=== PATIENT | male | born 1950 | race Caucasian/White ===

== ENCOUNTER 2021-05-06 06:12 | Inpatient (IN) ==
--- NOTE | 2021-04-23 11:11 | PAT Medication Instructions ---
Medication Instructions Date of Service April 23, 2021 Home Medications aspirin 81 mg tablet,delayed release 81 mg PO HS caffeine 200 mg tablet 400 mg PO QAM empagliflozin 25 mg-linagliptin 5 mg tablet (Glyxambi) 1 tab PO QAM ibuprofen 800 mg tablet 800 mg PO HS insulin glargine 100 unit/mL subcutaneous cartridge 30 unit SUBCUT HS lamotrigine 50 mg tablet,extended release 24 hr 50 mg PO QAM multivitamin 1 tab PO QAM pantoprazole 40 mg tablet,delayed release 40 mg PO QAM prazosin 1 mg capsule 3 mg PO HS quetiapine 100 mg tablet (Seroquel) 100 mg PO HS tamsulosin 0.4 mg capsule 0.4 mg PO QAM venlafaxine 150 mg capsule,extended release 24 hr (Effexor XR) 150 mg PO QAM venlafaxine 75 mg capsule,extended release 24 hr (Effexor XR) 75 mg PO QAM ASK your surgeon for instructions ibuprofen 800 mg tablet 800 mg PO HS ASK your prescriber and surgeon aspirin 81 mg tablet,delayed release 81 mg PO HS DO NOT take the morning of surgery caffeine 200 mg tablet 400 mg PO QAM empagliflozin 25 mg-linagliptin 5 mg tablet (Glyxambi) 1 tab PO QAM multivitamin 1 tab PO QAM Take morning of surgery With a small sip of water, OTHERWISE NOTHING TO EAT OR DRINK AFTER MIDNIGHT: lamotrigine 50 mg tablet,extended release 24 hr 50 mg PO QAM pantoprazole 40 mg tablet,delayed release 40 mg PO QAM tamsulosin 0.4 mg capsule 0.4 mg PO QAM venlafaxine 150 mg capsule,extended release 24 hr (Effexor XR) 150 mg PO QAM venlafaxine 75 mg capsule,extended release 24 hr (Effexor XR) 75 mg PO QAM Take evening before surgery insulin glargine 100 unit/mL subcutaneous cartridge 30 unit SUBCUT HS prazosin 1 mg capsule 3 mg PO HS quetiapine 100 mg tablet (Seroquel) 100 mg PO HS Other Notes If you have any questions please call us at [phone] or [phone] or [phone] or [phone]
--- NOTE | 2021-04-24 13:50 | Anesthesiology Consultation ---
Date of Service April 24, 2021 Assessment & Plan (1) Encounter for pre-operative examination: Chart Review Chart Review: Acceptable Risk for Surgery (pending surgeon ordered PCP clearance (response on EKG and BSG) and preop Covid testing results ) and Patient seen in Pre Admission Testing Awaiting surgeon ordered PCP clearance scheduled 04/26/21 (did write note to PCP regarding bifascicular block on EKG and elevated BSG) - Check BSG AM DOS. 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 Wears mask when required. No known Covid positive exposures or Covid related symptoms. No known Covid infection in the past 90 days. Pt is fully vaccinated for Covid. Preop Covid testing scheduled 05/06/21= will await results. Educated on importance of self quarantining, social distancing and wearing mask in public for the patient one week prior to surgery and after Covid testing done Teaching & Discussion Pre-Anesthesia Teaching/Discussion Notes: Instructed NPO after midnight before surgery,except medications with 15 cc of water. Medication instructions provided according to the PAT guidelines. History Surgery Operation Date: 05/08/21 09:05 Proposed Procedures p L3-S1 Decompression, L2-S1 Fusion, Spinal Cord Monitoring - Michael Zarco, Height/Weight Height: 6 ft 5 in Weight: 109.8 kg Allergies Allergy/AdvReac Type Severity Reaction Status Date / Time chlorpromazine Allergy Unknown Hives Verified 04/18/21 11:21 [From Thorazine] Medications Home Medications Medication Instructions Recorded Confirmed Last Taken aspirin 81 mg tablet,delayed 81 mg PO 04/18/21 04/18/21 Unknown release caffeine 200 mg tablet 400 mg PO [facility] 04/18/21 04/18/21 Unknown empagliflozin 25 mg-linagliptin 5 1 tab PO [facility] 04/18/21 04/18/21 Unknown mg tablet (Glyxambi) ibuprofen 800 mg tablet 800 mg PO 04/18/21 04/18/21 Unknown insulin glargine 100 unit/mL 30 unit SUBCUT 04/18/21 04/18/21 Unknown subcutaneous cartridge lamotrigine 50 mg tablet,extended 50 mg PO [facility] 04/18/21 04/18/21 Unknown release 24 hr multivitamin 1 tab PO QAM 04/18/21 04/18/21 Unknown pantoprazole 40 mg tablet,delayed 40 mg PO QAM 04/18/21 04/18/21 Unknown release prazosin 1 mg capsule 3 mg PO HS 04/18/21 04/18/21 Unknown quetiapine 100 mg tablet (Seroquel) 100 mg PO HS 04/18/21 04/18/21 Unknown tamsulosin 0.4 mg capsule 0.4 mg PO QAM 04/18/21 04/18/21 Unknown venlafaxine 150 mg 150 mg PO QAM 04/18/21 04/18/21 Unknown capsule,extended release 24 hr (Effexor XR) venlafaxine 75 mg capsule,extended 75 mg PO [facility] 04/18/21 04/18/21 Unknown release 24 hr (Effexor XR) Past Medical History Medical History Chronic back pain Depression Diabetes mellitus, type 2 Glucose stable in 150s per patient Wears Issa Freestyle - continuous glucose monitor Enlarged prostate GERD (gastroesophageal reflux disease) Well controlled and stable History of blood transfusion with appendectomy Mood disorder Post traumatic stress disorder Exercise / Class Metabolic Activity II 4-5 Yardwork/Stairs/Walk up hill (one flight of stairs- no chest pain or SOB ) Past Family History Family History Son Family history of diabetes mellitus Family/Other Family history of diabetes mellitus Past Surgical History Surgical History History of appendectomy History of cholecystectomy 02/2021 History of colonoscopy 07/2020 History of esophagogastroduodenoscopy (EGD) History of herniorrhaphy History of total knee replacement BILAT Past Anesthesia History No Hx of Anesthesia Complications and No Family Hx of Anesthesia Complications History of PONV No Hx of PONV and No Hx of Motion Sickness Social History Smoking Status: Former smoker Do You Dip or Chew Tobacco: No Smoking End Date: QUIT 25 YRS AGO Hx Alcohol Use: No Hx Substance Use: Yes substance use type: marijuana Substance Use Type Other:: MEDICAL MARIJUANA CARD-INH TID Review of Systems Hx of snoring - sleep study many years ago- no YOSELIN- snoring improved with elevating bed Patient denies chest pain, shortness of breath, dyspnea on exertion, cough, wheezing, palpitations. No hx of seizures, stroke, [place]. No hx of blood clots. Physical Exam Vital Signs VITALS BP 153/89 P 83 TEMP 98.0 SP02 95% RESP 16 Constitutional no acute distress ENMT Mouth: no TMJ clicking Thyromental Distance: > or= 3.5 Finger Breadths (3.5) Mallampati Class: II Neck neck extension not limited Respiratory normal respiratory effort; no respiratory distress Auscultation: lungs clear to auscultation bilaterally; no wheezes Cardiovascular Rate/Rhythm: regular rate and regular rhythm Heart Sounds: no murmur Vessels: no carotid bruit Occ missed beat Musculoskeletal Spine: no pain with cervical ROM Extremities: extremities normal to inspection Psychiatric Orientation: alert Lab Results Anesthesia Preop Results Results Anesthesia Widget: WBC 9.69 K/uL (4.8-10.8) 04/24/21 Hgb 16.2 g/dL (14.0-18.0) 04/24/21 Hct 48.2 % (42-52) 04/24/21 Plt 197 K/uL (130-400) 04/24/21 Na 139 mmol/L (136-145) 04/24/21 K 3.9 mmol/L (3.5-5.1) 04/24/21 Cl 105 mmol/L (98-107) 04/24/21 CO2 24 mmol/L (21-32) 04/24/21 BUN 26 mg/dl (6-23) H 04/24/21 Creat 0.93 mg/dl (0.6-1.4) 04/24/21 Glucose Level 304 mg/dl (70-99) H* 04/24/21 PT 9.2 Seconds (9.0-12.0) 04/24/21 PTT 27.5 Seconds (21.0-31.0) 04/24/21 INR 0.9 (0.9-1.1) 04/24/21 HA1c 8.3 % (4.5-5.6) H 04/24/21 Urine Color Yellow 04/24/21 Urine Appearance Clear (Clear) 04/24/21 Urine pH 5.0 (4.5-7.5) 04/24/21 Urine Specific [place] 1.030 (1.000-1.030) 04/24/21 Urine Protein Negative (Negative) 04/24/21 Urine Glucose (UA) 3+ (Negative) H 04/24/21 Urine Ketones 1+ (Negative) H 04/24/21 Urine Blood Negative (Negative) 04/24/21 Urine Nitrite Negative (Negative) 04/24/21 Urine Bilirubin Negative (Negative) 04/24/21 Urine Urobilinogen Negative (Negative) 04/24/21 Urine Leukocyte Esterase Negative (Negative) 04/24/21 Blood Type O Positive 04/24/21 Antibody Screen NEGATIVE 04/24/21 Lab Comments: Did inform surgeon's office and PCP of elevated glucose and Hgb A1C results- will leave to surgeon and PCP discretion on how to proceed Testing Electrocardiogram Date: 04/24/21 SR with PACs at 95 bpm. RBBB. LAFB. (Per review of previous EKGs- LAFB is new. Note sent to PCP requesting additional cardiac testing and/or cardio clearance prior to surgery) Chest X-Ray Date: 04/24/21 Findings: + NAD Mild right hemidiaphragmatic elevation.
[~2021-05-06 06:12] MED LIST: ACETAMINOPHEN 500 MG TAB PO SCH; CeleBREX 200 MG CAP PO SCH; GABAPENTIN 300 MG CAP PO SCH; LR 15ML/HR IV SCH; ceFAZolin 2000MG 2,000 MG/15 ML SYR IV SCH
[2021-05-06] MEDS ORDERED: LIDOCAINE 2% 2 ML VIAL/AMP(20MG/ML) INFIL ONE (07:04)
[2021-05-06] MEDS ORDERED: fentaNYL citrate 100 MCG/2 ML VIAL ONE ×3 (07:04→11:16)
[2021-05-06] MEDS ORDERED: MIDAZOLAM HCL 1 MG/ML 2ML VIAL ONE (07:04)
[2021-05-06] MEDS ORDERED: PROPOFOL IV EMULSION 10 MG/ML 20 ML VIAL IV ONE (07:04)
[2021-05-06] MEDS ORDERED: ONDANSETRON INJ 2 MG/ML 2 ML VIAL ONE (07:04)
[2021-05-06] MEDS ORDERED: ONDANSETRON INJ 2 MG/ML 2 ML VIAL IV PRN ×2 (07:08→13:04)
[2021-05-06] MEDS ORDERED: ATROPINE SULFATE 0.1 MG/ML 10ML SYR IV PRN (07:08)
[2021-05-06] MEDS ORDERED: HYDROmorphone INJ 1 MG/ML SYRINGE IV PRN (07:08)
[2021-05-06] MEDS ORDERED: fentaNYL citrate 100 MCG/2 ML VIAL IV PRN (07:08)
[2021-05-06] MEDS ORDERED: ePHEDrine sulfate 50 MG/ML AMP IV PRN (07:08)
[2021-05-06] MEDS ORDERED: ROCURONIUM BROMIDE 10 MG/ML 5 ML VIAL IV ONE ×6 (07:15→10:31)
--- NOTE | 2021-05-06 07:39 | History & Physical Bridge Note ---
Date of Service May 06, 2021 History & Physical Bridge Note I have examined the patient, reviewed the History & Physical and in the interval since the performance of the History & Physical I have noted the following changes of clinical significance: no changes noted
--- NOTE | 2021-05-06 07:40 | History & Physical Report ---
Date of Service May 06, 2021 Assessment & Plan (1) Neurogenic claudication due to lumbar spinal stenosis: Plan: L3-S1 decompression, L2-S1 fusion History of Present Illness Chief Complaint: Back and leg pain Primary Care Provider: Kristi Ingram This is a 70-year-old male presents with chronic persistent back and leg pain. Failing course of nonoperative care she for surgical invention. Allergies Allergy/AdvReac Type Severity Reaction Status Date / Time chlorpromazine Allergy Intermediate Hives Verified 05/06/21 07:24 [From Thorazine] Home Medications Medication Instructions Recorded Confirmed Type aspirin 81 mg tablet,delayed 81 mg PO HS 04/18/21 05/06/21 History release caffeine 200 mg tablet 400 mg PO QAM 04/18/21 05/06/21 History empagliflozin 25 mg-linagliptin 5 1 tab PO QAM 04/18/21 05/06/21 History mg tablet (Glyxambi) ibuprofen 800 mg tablet 800 mg PO HS 04/18/21 05/06/21 History insulin glargine 100 unit/mL 30 unit SUBCUT 04/18/21 05/06/21 History subcutaneous cartridge lamotrigine 50 mg tablet,extended 50 mg PO QAM 04/18/21 05/06/21 History release 24 hr (Lamictal XR) multivitamin 1 tab PO QAM 04/18/21 05/06/21 History pantoprazole 40 mg tablet,delayed 40 mg PO QAM 04/18/21 05/06/21 History release prazosin 1 mg capsule 3 mg PO HS 04/18/21 05/06/21 History quetiapine 100 mg tablet (Seroquel) 100 mg PO HS 04/18/21 05/06/21 History tamsulosin 0.4 mg capsule 0.4 mg PO QAM 04/18/21 05/06/21 History venlafaxine 150 mg 150 mg PO QAM 04/18/21 05/06/21 History capsule,extended release 24 hr (Effexor XR) venlafaxine 75 mg capsule,extended 75 mg PO QAM 04/18/21 05/06/21 History release 24 hr (Effexor XR) Past Med/Surg History Medical History Chronic back pain Depression Diabetes mellitus, type 2 Glucose stable in 150s per patient Wears Issa Freestyle - continuous glucose monitor Enlarged prostate GERD (gastroesophageal reflux disease) Well controlled and stable History of blood transfusion with appendectomy Mood disorder Post traumatic stress disorder Surgical History History of appendectomy History of cholecystectomy 02/2021 History of colonoscopy 07/2020 History of esophagogastroduodenoscopy (EGD) History of herniorrhaphy History of total knee replacement BILAT Family History Son Family history of diabetes mellitus Family/Other Family history of diabetes mellitus Social History (Updated 04/18/21 @ 11:54 by Mary Carmen Mauro RN) Smoking Status: Former smoker Smoking End Date: QUIT 25 YRS AGO; Second Hand Exposure: Yes; Do You Dip or Chew Tobacco: No; Hx Alcohol Use: No Hx Substance Use: Yes Substance Use Type Other:: MEDICAL MARIJUANA CARD-INH TID Preferred Language: Maori Communication Ability: Effective Binder And Box Builder Required: No Beliefs That Will Affect Care: None Current Living Situation: Spouse current occupational status: employed current occupation: DIRECTOR [employer] Other Information That Helps Us Care for You: No Feels Safe at Home: Yes Safety Concerns: Feels Safe At This Time Assistive Devices: Glasses Physical Exam Physical Exam: Patient is alert and oriented Heart regular in rhythm Lungs clear Results & Data ([facility]) Vital Signs (Past 12 Hours) Vital Signs Temp Pulse Resp BP Pulse Ox 05/06/21 06:34 36.5 C 87 18 157/93 H 94
[2021-05-06] MEDS ORDERED: ceFAZolin 330 MG/ML 1 GM VIAL ONE (07:41)
[2021-05-06] MEDS ORDERED: BUPIVACAINE/EPINEPHRINE 0.25% 1:200,000 30 ML VIAL ONE (07:41)
[2021-05-06] MEDS ORDERED: PHENYLEPHRINE 100MCG/ML 5ML SYR ONE (08:27)
[2021-05-06] MEDS ORDERED: FLOSEAL HEMOSTATIC MATRIX 10ML TOP ONE (08:41)
[2021-05-06] MEDS ORDERED: ePHEDrine sulfate 50 MG/ML SYR ONE (09:00)
[2021-05-06] MEDS ORDERED: ALBUMIN HUMAN 5% 12.5 GM/250 ML VIAL IV ONE (09:24)
[2021-05-06] MEDS ORDERED: VASOPRESSIN 20 UNIT/ML VIAL ONE (09:46)
[2021-05-06] MEDS ORDERED: NEOSTIGMINE METHYLSULFATE 1 MG/ML 10ML VIAL ONE (10:31)
[2021-05-06] MEDS ORDERED: GLYCOPYRROLATE 0.2 MG/ML VIAL ONE (10:31)
--- NOTE | 2021-05-06 11:13 | Operative Report ---
Post Operative Report Pre & Post Diagnosis Operation Date: 05/06/21 07:45 Pre-Op Diagnosis: Neurogenic claudication due to lumbar spinal stenosis Post-Op Diagnosis: Neurogenic claudication due to lumbar spinal stenosis I identified the patient and participated in the time-out.: Yes Procedure Operation Date: 05/06/21 07:45 Actual Procedures #1 lumbar decompression with bilateral medial facetectomies and foraminotomies L2-3, L3-4, L4-5 L5-S1. #2 posterior spinal fusion L2-L3, L3-L4, L4-L5 and L5- S1. #3 placement of posterior segmental instrumentation L2-S1. #4 interbody fusion L2-L3-L4, L4-5 and L5-S1. #5 placement peek cage 11 x 26 mm at L3-L4, 13 x 26 mm at L4-L5, 13 x 26 mm at L5-S1. #6 placement of locally harvested morselized autograft in the posterior gutters. #7 placement of infuse collagen sponge, master graft in the posterior lateral gutters and I factor interbody space. Surgeon Michael Zarco, Book Packer Lia Whitehead Estimated Blood Loss 750 Findings Consistent with Post-Op Diagnosis Specimens None Indications This is a 70-year-old male who presents above-mentioned diagnosis after failing course of nonoperative care is here for the above-mentioned procedure. Description of Procedure Patient was met with identified informed consent obtained. Patient was then taken to the operative suite underwent ablation placed in a prone position the Nav table on top of the Abiel frame. All bony prominences were well-padded eyes inspected to ensure no external pressure placed upon the. This point the lumbar spine was prepped and draped in a normal sterile fashion. Sharp dissection with the assistance of Bovie cautery was performed down to and expo sing the lamina and transverse processes of L2 L3-L4-L5 and sacral ala bilaterally. From a caudal cephalad fashion complete laminectomy of all 5 L4 L3 and partial laminectomy of L2 was performed occluding bilateral medial facetectomies and foraminotomies addressing severe spinal stenosis. Pedicle screws were then placed in L2 L3-L4-L5 and S1 levels bilaterally with assistance of fluoroscopy and the appropriately sized kenzie placed. By way of a transforaminal approach on the left complete discectomy of L5-S1 was performed endplates curetted to subcortical being bone and a 13 x 26 mm peek cage filled I factor tapped in position. Then proceeded to L for L5 and again by way of a transforaminal portion left pleat discectomy performed endplates curetted to subcortically bone and again a 13 x 26 mm peek cage filled with I factor tapped in position. Lastly I approached L3-L4 and again by way of a transforaminal approach and left complete discectomy performed endplates curetted to subcortica l being bone and an 11 x 26 mm peek cage filled with I factor tapped in position. The rods were then locked into final position bilaterally. Transverse processes of L2 L3-L4-L5 and sacral ala burred to subcortical bleeding bone. Infuse collagen sponge mass graft local autograft was placed in the posterior lateral gutters. 15 round MARY JO drain inserted. The incision was then closed with 1 Vicryl the fascia 2-0 Vicryl subcutaneously and 4 Monocryl for final skin closure. Steri-Strips dressings placed. Patient will continue PACU stable condition. Please note spinal cord monitoring was utilized at the procedure no changes noted. Lastly Lia Whitehead was present at the entire procedure and all the patient positioning complex portions of the surgery and final skin closure. I attest to the content of the Intraoperative Record and any orders documented therein. Any exceptions are noted below.
--- NOTE | 2021-05-06 11:35 | Fluoroscopy Report ---
FL lumbar spine 2-3V CLINICAL HISTORY: L2-S1 DECOMPRESSION COMPARISON STUDY: None. FLUOROSCOPY TIME: 41 seconds. FLUOROSCOPIC IMAGES: 4 FINDINGS: L3-L4, L4-L5 and L5-S1 discectomies with interbody spacer placement as noted. Multilevel po sterior decompression is noted. Note is made of L2-S1 bilateral pedicle screw fusion with interconnec ting rods. Hardware is intact. IMPRESSION: Fluoroscopy provided during L3-L4, L4-5 and L5-S1 discectomies with multilevel posterior decompression and L2-S1 bilateral pedicle screw fusion. ACT 112: Negative or not required by law. Electronically signed by: Rod Echeverria M.D. 05/06/2021 11:33 AM
[2021-05-06] MEDS ORDERED: NovoLIN-R INSULIN PER UNIT CHARGE ONE (12:01)
[2021-05-06] MEDS ORDERED: INSULIN HUMAN REGULAR PER UNIT 5 UNITS in SYRINGE 0 ML IV STA (12:02)
--- NOTE | 2021-05-06 12:50 | Anesthesiology Progress Note ---
Date of Service May 06, 2021 Anesthesia Post Procedure Vital Signs Vital Signs: Temp Pulse Pulse Resp BP BP Pulse Ox 05/06/21 12:40 82 15 103/63 92 05/06/21 12:30 86 15 95/67 L 95 05/06/21 12:20 88 14 93/60 L 93 05/06/21 12:10 91 H 15 104/62 94 05/06/21 12:00 93 H 16 110/60 94 05/06/21 11:50 97.7 F 96 H 16 102/70 97 05/06/21 11:40 89 16 111/68 94 05/06/21 11:31 97.5 F L 100 H 16 125/89 98 05/06/21 06:34 97.7 F 87 18 157/93 H 94 Pain Intensity Right Lower Back: Pain Intensity: 3 Medial Back: Pain Intensity: 5 Transfer of Care Handoff Completed per policy Notes Mental Status: alert / awake / arousable and participated in evaluation Patient Amnestic to Procedure: Yes Nausea / Vomiting: adequately controlled Pain: adequately controlled Airway Patency, RR, SpO2: stable & adequate BP & HR: stable & adequate Hydration State: stable & adequate Anesthetic Complications: no major complications apparent and Pt Satisfied with anesthetic care
[2021-05-06] MEDS ORDERED: DO NOT ADMINISTER PNEUMOCOCCAL VACCINE PRN (13:04)
[2021-05-06] MEDS ORDERED: bisacodyL 10 MG SUPP PR PRN (13:04)
[2021-05-06] MEDS ORDERED: DO NOT ADMINISTER FLU VACCINE PRN (13:04)
[2021-05-06] MEDS ORDERED: LORazepam 0.5 MG/1 ML VIAL IV PRN (13:04)
[2021-05-06] MEDS ORDERED: FAMOTIDINE 20 MG TAB PO PRN (13:04)
[2021-05-06] MEDS ORDERED: PHARMACY GLYCEMIC MGMT CONSULT PRN (13:04)
[2021-05-06] MEDS ORDERED: ONDANSETRON 4 MG OD TAB PO PRN (13:04)
[2021-05-06] MEDS ORDERED: NALOXONE HCL 0.4 MG/1 ML VIAL/CARP IV PRN (13:04)
[2021-05-06] MEDS ORDERED: ACETAMINOPHEN 500 MG TAB PO PRN (13:04)
[2021-05-06] MEDS ORDERED: PROMETHAZINE HCL 12.5 MG in SODIUM CHLORIDE 0.9% 50 ML IV PRN (13:04)
[2021-05-06] MEDS ORDERED: SOD PHOSPHATE/SOD BIPHOSPHATE ENEMA 132 ML BTL PR PRN (13:04)
[2021-05-06] MEDS ORDERED: METOCLOPRAMIDE HCL INJ 5 MG/ML 2 ML VIAL IV PRN (13:04)
[2021-05-06] MEDS ORDERED: ALUMINUM/MAGNESIUM SUSP 30 ML UDC PO PRN (13:04)
[2021-05-06] MEDS ORDERED: ACETAMINOPHEN 1,000 MG/100 ML VIAL IV PRN (13:04)
[2021-05-06] MEDS ORDERED: diphenhydrAMINE Capsule 25 MG CAP PO PRN (13:04)
[2021-05-06] MEDS ORDERED: LORazepam 0.5 MG TAB PO PRN (13:04)
[2021-05-06] MEDS ORDERED: MAGNESIUM HYDROXIDE SUSP 30 ML UDC PO PRN (13:04)
[2021-05-06] MEDS ORDERED: hydrOXYzine HCl 25 MG TAB PO PRN (13:04)
[2021-05-06] MEDS ORDERED: traMADol HCL 50 MG TABLET PO PRN (13:04)
[2021-05-06] MEDS: SODIUM CHLORIDE 0.9% 1000ML 1,000 ML IV SCH ×2 (13:37→19:43)
[2021-05-06] MEDS ORDERED: GLUCOSE 10 TABS/TUBE PO PRN (14:00)
[2021-05-06] MEDS ORDERED: GLUCOSE 40% GEL 15 GM TUBE PO PRN (14:00)
[2021-05-06] MEDS ORDERED: CARBOHYDRATES FOR HYPOGLYCEMIA PO PRN (14:00)
[2021-05-06] MEDS ORDERED: INSULIN GLARGINE SOLOSTAR 100 UNITS/ML 3 ML PEN SC ONE ×2 (14:00→14:15)
[2021-05-06] MEDS ORDERED: DEXTROSE 50% 50 ML SYRINGE IV PRN (14:00)
[2021-05-06] MEDS ORDERED: GLUCAGON FOR INJ 1 MG VIAL IM PRN (14:00)
--- NOTE | 2021-05-06 14:04 | Pharmacy Report ---
Pharmacy Glycemic Short Note 2 - Date of Service May 06, 2021 - Glycemic Short BSG Results (Last 24 hours): 05/06/21 05/06/21 05/06/21 06:25 11:32 12:24 POC Glucose 186 H 295 H 250 H OUTPATIENT ANTIDIABETIC REGIMEN: * Empagliflozin-Linagliptin 1 tablet daily * Lantus 30 units HS (last recorded dose of 30 units on 05/05/32) ASSESSMENT: * Mr Osorio is a 70 y/o M with a PMH of T2DM who presents for spinal surgery. Fasting BSG is 186 mg/dL and HbA1C is 8.3% (average BSG of ~190 mg/dL). * Will start with Lantus 45 units (home dose x 1.5). Documented patient took home dose last night; HOWEVER, nurse asked patient while I was on the phone and he DENIED taking insulin yesterday evening. This will provide some extra insulin to "make up" for missed dose yesterday. Overnight checks to ensure 24 hour coverage. * Novolog weight-based stress of 3. * Hold oral agents. PLAN FOR INPATIENT GLYCEMIC CONTROL: * Hold outpatient oral diabetes medications * Basal insulin * Lantus 45 units SQ x 1 then adjust based upon BSGs. * Bolus insulin * NovoLog per scale ACHS or Q6hrs while NPO * Goal Range: Low 110 mg/dL - High 140 mg/dL * Correction Factor: 15 mg/dL/unit * Nutritional / Prandial insulin per carb ratio of 1 unit per 5 grams CHO consumed PLAN FOR DISCHARGE: * TBD
[2021-05-06] MEDS: KETOROLAC TROMETHAMINE 15 MG/ML VIAL IV SCH ×2 (14:06→18:12)
[2021-05-06] MEDS: INSULIN ASPART PER UNIT SC SCH ×3 (14:40→22:06)
[2021-05-06] MEDS: HYDROmorphone INJ 0.5 MG/0.5 ML SYR IV PRN ×2 (14:45→23:11)
[2021-05-06] MEDS: ceFAZolin 2000MG 2,000 MG/15 ML SYR IV SCH (15:32)
[2021-05-06] MEDS ORDERED: LAMOTRIGINE 25 MG PO SCH (21:00)
[2021-05-06] MEDS ORDERED: INSULIN GLARGINE SOLOSTAR 100 UNITS/ML 3 ML PEN SC SCH (21:00)
[2021-05-06] MEDS: ASPIRIN 81 MG ECTAB PO SCH (21:19)
[2021-05-06] MEDS: DOCUSATE SODIUM/SENNA 50/8.6MG TAB PO SCH (21:19)
[2021-05-06] MEDS: QUEtiapine FUMARATE 100 MG TABLET PO SCH (21:19)
[2021-05-06] MEDS: PRAZOSIN HCL 1 MG CAP PO SCH (22:11)
[2021-05-07] MEDS: ceFAZolin 2000MG 2,000 MG/15 ML SYR IV SCH (00:13)
[2021-05-07] MEDS: INSULIN ASPART PER UNIT SC SCH ×6 (00:33→21:36)
[2021-05-07] MEDS: KETOROLAC TROMETHAMINE 15 MG/ML VIAL IV SCH ×2 (00:37→06:12)
[2021-05-07] MEDS: SODIUM CHLORIDE 0.9% 1000ML 1,000 ML IV SCH (01:46)
[2021-05-07] MEDS ORDERED: KETOROLAC TROMETHAMINE 15 MG/ML VIAL IV ONE (02:00)
[2021-05-07] MEDS: HYDROmorphone INJ 0.5 MG/0.5 ML SYR IV PRN (04:41)
[2021-05-07] MEDS: POLYETHYLENE (MIRALAX) 17 GM PACK PO SCH ×3 (05:51→18:03)
[2021-05-07 06:21] LABS: Basophils # (auto) 0.04 K/uL (0-0.2); Basophils % (auto) 0.3 %; Eosinophils # (auto) 0.05 K/uL (0-0.5); Eosinophils % (auto) 0.4 %; Hematocrit (blood only) 37.3 % (42-52); Hemoglobin 12.1 g/dL (14.0-18.0); Immature Granulocytes # (auto) 0.05 K/uL (0.00-0.02); Immature Granulocytes % (auto) 0.4 %; Lymphocytes % (auto) 13.1 %; Mean Corpuscular Hemoglobin 30.3 pg (25-34); Mean Corpuscular Hgb Conc 32.4 g/dL (32-36); Mean Corpuscular Volume 93.5 fL (80-100); Mean Platelet Volume 11.6 fL (7.4-10.4); Monocytes # (auto) 1.81 K/uL (0.11-0.59); Monocytes % (auto) 13.1 %; Neutrophils # (auto) 10.02 K/uL (1.4-6.5); Neutrophils % (auto) 72.7 %; Platelet Count 173 K/uL (130-400); RDW Coefficient of Variation 13.1 % (11.5-14.5); RDW Standard Deviation 44.9 fL (36.4-46.3); Red Blood Count 3.99 M/uL (4.7-6.1); White Blood Count 13.77 K/uL (4.8-10.8)
[2021-05-07 06:51] LABS: BUN Creatinine Ratio 18.6 (10-20); Calcium 7.7 mg/dl (8.5-10.1); Creatinine Clr Calc Pharmacy 102.2 ml/min; Est GFR (African American) 102.5 ml/min; Est GFR (Non-African American) 88.5 ml/min; Potassium 3.7 mmol/L (3.5-5.1)
[2021-05-07] MEDS: VENLAFAXINE HCL XR 75 MG CAPXR PO SCH (07:41)
[2021-05-07] MEDS: PANTOprazole 40 MG TAB PO SCH (07:41)
[2021-05-07] MEDS: MULTIVITAMIN TAB PO SCH (07:41)
[2021-05-07] MEDS: VENLAFAXINE HCL XR 150 MG CAPXR PO SCH (07:42)
[2021-05-07] MEDS: TAMSULOSIN HCL 0.4 MG CAP PO SCH (07:42)
[2021-05-07] MEDS ORDERED: NON-FORMULARY MEDICATION (Empagliflozin-Linagliptin [Glyxambi] 25-5 mg Tablet) PO SCH (09:00)
[2021-05-07] MEDS ORDERED: CAFFEINE 200 MG PO SCH (09:00)
--- NOTE | 2021-05-07 09:09 | Orthopedic Progress Note ---
Date of Service May 07, 2021 Assessment & Plan (1) Neurogenic claudication due to lumbar spinal stenosis: Plan: This time continue physical therapy monitor his MARY JO output hopefully discharge home in the next few days. Admission and Anticipated Discharge Date Admission Date: May 06, 2021 Subjective Patient's back pain is controlled leg symptoms markedly improved Physical Exam Physical Exam: On physical exam is good strength testing appears comfortable. Results & Data ([facility]) Vital Signs (Past 12 Hours) Vital Signs Temp Pulse Resp BP Pulse Ox 05/07/21 07:32 36.8 C 72 16 100/64 94 05/07/21 04:37 37.8 C H 05/07/21 03:39 38.4 C H 05/07/21 02:34 38.9 C H 110 H 17 131/83 92 05/07/21 01:45 39.2 C H 109 H 18 128/81 92 05/07/21 00:07 38.5 C H 90 18 132/86 97
--- NOTE | 2021-05-07 09:13 | Consultation ---
Date of Consultation May 07, 2021 Assessment & Plan (1) Neurogenic claudication due to lumbar spinal stenosis: (2) Diabetes mellitus, type 2: (3) Post traumatic stress disorder: This is a 70-year-old male who has a significant past medical history of PTSD and T2DM who presented for lumbar procedure by Dr. Zarco. Neurogenic claudication due to lumbar spinal stenosis Status post L2-S1 DECOMPRESSION, POD #[address] Zarco EBL 750 mL; MARY JO drain 760 ml Tolerated procedure well Pain/wound management per orthopedics To begin therapy as prescribed orthopedics Encourage incentive spirometry Postoperative fever T-max 39.2 Overnight patient met SIRS criteria secondary to fever and tachycardia, Mild leukocytosis this morning at 13k Possibly in setting of postop state Blood cultures ordered, obtain chest x-ray and urinalysis Currently fever has abated, will monitor hold off on antibiotics at this time, spirometer encouraged Acute blood loss anemia and postop state Preop hemoglobin 16.2, hemoglobin on postop day 112.1 No signs or symptoms of hemodynamic instability Likely secondary to blood loss intraoperatively and postoperatively Monitor, transfuse hemoglobin less than 7 or otherwise hemodynamically unstable/symptomatic T2DM -with hyperglycemia Per patient last A1c's 8.3 on 04/24/2021 Glycemic pharmacy on board, appreciate their management Home regimen of Lantus 30 units at bedtime and empagliflozin and linagliptin PTSD Depression with anxiety Continue Seroquel, prazosin, Lamictal, Effexor BPH Continue Flomax Dispo: Per primary PCP: Michael Castrejon PA FULL CODE Patient was seen and examined in collaboration with Dr. Dillon, please see addendum Thank you for this consultation. We will follow the patient with you during their hospital stay. You can reach a member of the [facility] Hospitalist Team 03/11 via hospitalist role on tiger text. The chart was completed utilizing [employer] Speech voice recognition software. Grammatical errors, random word insertions, pronoun errors, and incomplete sentences are an occasional consequence of this system due to software limitations, ambient noise, and hardware issues. Any formal questions or concerns about the content, text, or information contained within the body of this dictation should be directly addressed to the provider for clarification.. Supervising Physician Co-Signing Physician Notes History and physical exam performed by me as detailed by Albania Butterfield PA-C Patient reports back surgical site pain is controlled. Reports pain in left shoulder and left hip after surgery Had fever overnight Physical exam notable for clean dressing over surgical site with drain in situ, some tenderness in left bicep/deltoid. Patient had fever overnight Get blood cultures and monitor in view of recent surgery. Hold off any antibiotic for now except if patient become febrile again or any sign of infection Left shoulder pain currently appear to be more muscular, Will monitor for now. Pain control. Monitor CBC Agree with other plans as detailed by Albania Butterfield PA-C History of Present Illness Requesting Physician: Dr. Zarco Reason for Consultation: Post op medical management Attending Physician: Michael Zarco, DO History of Present Illness This is a 70-year-old male who has a significant past medical history of PTSD and T2DM who presented for lumbar procedure by Dr. Zarco. We have been consulted for medical management. Overnight patient had a fever as high as 102 and generally did not feel well. He also complained of severe left shoulder pain. Pain was 10 out of 10 and was not responding to Dilaudid. He states, "it was in the joint." Pain has since subsided and resolved. He does have full range of motion of left shoulder. He denies any chills, sweats, lightheadedness, dizziness, chest pain, shortness breath, cough, hemoptysis, nausea, vomiting, abdominal pain. He tolerated breakfast without difficulty. He does have Fontana catheter in place and is requesting it to be removed. Currently his pain is well controlled. Of significance patient does have history of T2DM controlled with 30 units of Lantus at bedtime and oral medications. His last A1c 1 week ago was 8.1. He states lately his blood sugars have been more difficult to control. He also has history of PTSD for which he takes Lamictal, Seroquel, Effexor and prazosin. He feels this is stable. Allergies Allergy/AdvReac Type Severity Reaction Status Date / Time chlorpromazine Allergy Intermediate Hives Verified 05/06/21 07:24 [From Thorazine] Home Medications Medication Instructions Recorded Confirmed Type aspirin 81 mg tablet,delayed 81 mg PO HS 04/18/21 05/06/21 History release caffeine 200 mg tablet 400 mg PO QAM 04/18/21 05/06/21 History empagliflozin 25 mg-linagliptin 5 1 tab PO QAM 04/18/21 05/06/21 History mg tablet (Glyxambi) ibuprofen 800 mg tablet 800 mg PO HS 04/18/21 05/06/21 History insulin glargine 100 unit/mL 30 unit SUBCUT HS 04/18/21 05/06/21 History subcutaneous cartridge multivitamin 1 tab PO QAM 04/18/21 05/06/21 History pantoprazole 40 mg tablet,delayed 40 mg PO QAM 04/18/21 05/06/21 History release prazosin 1 mg capsule 3 mg PO HS 04/18/21 05/06/21 History quetiapine 100 mg tablet (Seroquel) 100 mg PO HS 04/18/21 05/06/21 History tamsulosin 0.4 mg capsule 0.4 mg PO QA 04/18/21 05/06/21 History venlafaxine 150 mg 150 mg PO QAM 04/18/21 05/06/21 History capsule,extended release 24 hr (Effexor XR) venlafaxine 75 mg capsule,extended 75 mg PO QA 04/18/21 05/06/21 History release 24 hr (Effexor XR) lamotrigine 25 mg tablet (Lamictal) 50 mg PO HS 05/06/21 05/06/21 History oxycodone 5 mg tablet 5 mg PO Q6H PRN #30 tab 05/06/21 Rx tramadol 50 mg tablet 50 mg PO Q6H PRN #30 tab 05/06/21 Rx Patient History Medical History (Updated 05/07/21 @ 10:35 by Albania Butterfield PA-C) Chronic back pain Depression Diabetes mellitus, type 2 Glucose stable in 150s per patient Wears Issa Freestyle - continuous glucose monitor Enlarged prostate GERD (gastroesophageal reflux disease) Well controlled and stable History of blood transfusion with appendectomy Mood disorder Post traumatic stress disorder Surgical History History of appendectomy History of cholecystectomy 02/2021 History of colonoscopy 07/2020 History of esophagogastroduodenoscopy (EGD) History of herniorrhaphy History of total knee replacement BILAT Family History Son Family history of diabetes mellitus Family/Other Family history of diabetes mellitus Father , 50 Heart disease Myocardial infarction Mother , 83 No problems noted. Social History Smoking Status: Former smoker Smoking End Date: QUIT 25 YRS AGO; Second Hand Exposure: Yes; Do You Dip or Chew Tobacco: No; Hx Alcohol Use: No Hx Substance Use: Yes Substance Use Type Other:: MEDICAL MARIJUANA CARD-INH TID Preferred Language: Citizen Of [place] Communication Ability: Effective Clay Grinder Required: No Beliefs That Will Affect Care: None marital status: Current Living Situation: Spouse current occupational status: employed current occupation: DIRECTOR [employer] [place] How many Children do You have: 0 Other Information That Helps Us Care for You: No Feels Safe at Home: Yes Safety Concerns: Feels Safe At This Time Assistive Devices: Walker Review of Systems Review of Systems: All systems reviewed & are unremarkable except as noted in HPI & below Physical Exam Physical Exam: Constitutional: WD/WN, male, vitals as above, NAD, sitting up in bed, pleasant, conversing easily Head: Normocephalic, Atraumatic Eyes: PERRL, conjunctivae normal, anicteric sclerae ENMT: external ear and nose normal, oropharynx normal Neck: trachea midline, no thyromegaly normal visual inspection Respiratory: normal respiratory effort, lungs clear to auscultation, no wheeze, rales, rhonchi. Normal insp/exp effort, no accessory muscle use Cardiovascular: RRR, no murmur, no edema Vessels: no JVD or carotid bruit Chest: normal inspection of chest Abdomen: normal bowel sounds, soft, nontender, no hepatosplenomegaly Musculoskeletal: no cyanosis or clubbing, extremities motor strength 5/5 , acti ve range of motion to bilateral upper and lower extremities. Left shoulder palpated and pain to palpation at insertion of biceps. Lumbar dressing CDI, MARY JO drain with serosanguineous drainage Skin: no rashes, warm and dry normal turgor Neurologic: PERRL, EOMI, accommodation nl, no face palsy, no dysarthria CN's II-XI intact bilaterally and moves all extremities Psychiatric: A+Ox3, euthymic affect Lymphatic: no cervical or axillary lymphadenopathy : deferred Results & Data ([facility]) Vital Signs (Past 12 Hours) Vital Signs Temp Pulse Resp BP Pulse Ox 05/07/21 07:32 36.8 C 72 16 100/64 94 05/07/21 04:37 37.8 C H 05/07/21 03:39 38.4 C H 05/07/21 02:34 38.9 C H 110 H 17 131/83 92 05/07/21 01:45 39.2 C H 109 H 18 128/81 92 05/07/21 00:07 38.5 C H 90 18 132/86 97 Laboratory Results Short CBC 05/07/21 Range/Units 05:40 WBC 13.77 H (4.8-10.8) K/uL Hgb 12.1 L (14.0-18.0) g/dL Hct 37.3 L (42-52) % Plt Count 173 (130-400) K/uL BMP 05/07/21 05:40 Sodium 138 Potassium 3.7 Chloride 107 Carbon Dioxide 27 BUN 16 Creatinine 0.86 Glucose 144 H Calcium 7.7 L Diagnostic Findings Lumbar Spine X-Ray 05/06/21 07:45 FL lumbar spine 2-3V CLINICAL HISTORY: L2-S1 DECOMPRESSION COMPARISON STUDY: None. FLUOROSCOPY TIME: 41 seconds. FLUOROSCOPIC IMAGES: 4 FINDINGS: L3-L4, L4-L5 and L5-S1 discectomies with interbody spacer placement as noted. Multilevel posterior decompression is noted. Note is made of L2-S1 bilateral pedicle screw fusion with interconnecting rods. Hardware is intact. IMPRESSION: Fluoroscopy provided during L3-L4, L4-5 and L5-S1 discectomies with multilevel posterior decompression and L2-S1 bilateral pedicle screw fusion. ACT 112: Negative or not required by law. Electronically signed by: Rod Echeverria M.D. 05/06/2021 11:33 AM Medications Administered Current Inpatient Medications Acetaminophen (Acetaminophen 500 Mg Tab) 1,000 mg PO Q8H PRN PRN Reason: MILD Pain Scale 1,2,3 & Pre PT Stop: 06/05/21 13:03 Last Admin: 05/07/21 00:37 Dose: 1,000 mg Documented by: Al Hydrox/Mg Hydrox/Simethicone (Aluminum/Magnesium Susp 30 Ml Udc) 30 ml PO Q6H PRN PRN Reason: Dyspepsia Stop: 06/05/21 13:03 Aspirin (Aspirin 81 Mg Ectab) 81 mg PO HS ONEL Stop: 06/05/21 20:59 Last Admin: 05/06/21 21:19 Dose: 81 mg Documented by: Bisacodyl (Bisacodyl 10 Mg Supp) 10 mg KS DAILY PRN PRN Reason: Constipation Stop: 06/05/21 13:03 Dextrose (Dextrose 50% 50 Ml Syringe) 25 - 50 ml IV UD PRN; Protocol PRN Reason: Hypoglycemia Protocol Stop: 06/05/21 13:59 Diphenhydramine HCl (Diphenhydramine Capsule 25 Mg Cap) 25 mg PO Q6H PRN PRN Reason: Allergic Rhinitis/Insomnia Stop: 06/05/21 13:03 Famotidine (Famotidine 20 Mg Tab) 20 mg PO Q12H PRN PRN Reason: Dyspepsia Stop: 06/05/21 13:03 Glucagon (Glucagon For Inj 1 Mg Vial) 1 mg IM UD PRN; Protocol PRN Reason: Hypoglycemia Protocol Stop: 06/05/21 13:59 Glucose (Glucose 40% Gel 15 Gm Tube) 15 - 30 gm PO UD PRN; Protocol PRN Reason: Hypoglycemia Protocol Stop: 06/05/21 13:59 Glucose (Glucose 10 Tabs/Tube) 4 - 8 tabs PO UD PRN; Protocol PRN Reason: Hypoglycemia Protocol Stop: 06/05/21 13:59 Hydromorphone HCl (Hydromorphone Inj 0.5 Mg/0.5 Ml Syr) 0.5 mg IV Q3H PRN PRN Reason: MODERATE Pain (Scale 4,5,6) & Pre PT Stop: 05/20/21 13:03 Last Admin: 05/07/21 04:41 Dose: 0.5 mg Documented by: Hydromorphone HCl (Hydromorphone Inj 1 Mg/Ml Syringe) 1 mg IV Q3H PRN PRN Reason: SEVERE Pain (Scale 7,8,9,10) Stop: 05/20/21 13:03 Hydroxyzine HCl (Hydroxyzine Hcl 25 Mg Tab) 25 mg PO Q8H PRN PRN Reason: Anxiety Stop: 06/05/21 13:03 Promethazine HCl 12.5 mg/ (Sodium Chloride) 50.5 mls @ 202 mls/hr IV Q6H PRN PRN Reason: Nausea &/or Vomiting Stop: 06/05/21 13:03 Acetaminophen (Ofirmev) 1,000 mg in 100 mls @ 400 mls/hr IV Q8H PRN PRN Reason: Pain Rating 1-3 & Pre PT Stop: 05/09/21 13:03 Lorazepam (Ativan) 0.5 mg in 1 mls @ 1 mls/min IV Q8H PRN PRN Reason: Sedation/Anxiety Stop: 06/05/21 13:03 Dexamethasone 8 mg/ Syringe 2 mls @ 1 mls/min IV DAILY ONEL Stop: 06/07/21 08:59 Influenza Virus Vaccine Quadrival (Do Not Administer Flu Vaccine) 1 ea N/A PRN PRN PRN Reason: Notification Stop: 06/05/21 13:03 Insulin Aspart (Insulin Aspart Per Unit) 0 units SC ACHS [facility] Stop: 06/05/21 13:59 Last Admin: 05/07/21 08:39 Dose: 14 units Documented by: Lamotrigine (Lamotrigine 25 Mg Tab) 50 mg PO HS [facility] Stop: 06/06/21 20:59 Lorazepam (Lorazepam 0.5 Mg Tab) 0.5 mg PO Q8H PRN PRN Reason: Sedation/Anxiety Stop: 06/05/21 13:03 Magnesium Hydroxide (Magnesium Hydroxide Susp 30 Ml Udc) 30 ml PO Q24H PRN PRN Reason: Constipation Stop: 06/05/21 13:03 Metoclopramide HCl (Metoclopramide Hcl Inj 5 Mg/Ml 2 Ml Vial) 10 mg IV Q6H PRN PRN Reason: Nausea &/or Vomiting Stop: 06/05/21 13:03 Miscellaneous (Lamotrigine 50 Mg Hs: Order Awaiting Action) 1 ea N/A QS [facility] Stop: 06/05/21 15:59 Last Admin: 05/07/21 07:42 Dose: 1 ea Documented by: Miscellaneous (Carbohydrates For Hypoglycemia ) 15 - 30 gm PO UD PRN PRN Reason: Hypoglycemia Treatment Stop: 06/05/21 13:59 Miscellaneous Information (Pharmacy Glycemic Mgmt Consult) 1 ea N/A UD PRN PRN Reason: Consult Stop: 06/05/21 13:03 Multivitamins (Multivitamin Tab) 1 tab PO QAM [facility] Stop: 06/06/21 08:59 Last Admin: 05/07/21 07:41 Dose: 1 tab Documented by: Naloxone HCl (Naloxone Hcl 0.4 Mg/1 Ml Vial/Carp) 0.1 mg IV Q5M PRN PRN Reason: Oversedation/Resp depression Stop: 06/05/21 13:03 Ondansetron HCl (Ondansetron Inj 2 Mg/Ml 2 Ml Vial) 4 mg IV Q6H PRN PRN Reason: Nausea &/or Vomiting Stop: 06/05/21 13:03 Ondansetron HCl (Ondansetron 4 Mg Od Tab) 4 mg PO Q6H PRN PRN Reason: Nausea Stop: 06/05/21 13:03 Oxycodone HCl (Oxycodone Hcl Ir 5 Mg Tab (Immediate Release)) 5 - 10 mg PO Q4H PRN PRN Reason: Pain & Pre PT Stop: 05/20/21 13:03 Pantoprazole Sodium (Pantoprazole 40 Mg Tab) 40 mg PO QAM [facility] Stop: 06/06/21 08:59 Last Admin: 05/07/21 07:41 Dose: 40 mg Documented by: Pneumococcal Polyvalent Vaccine (Do Not Administer Pneumococcal Vaccine) 1 ea N/A PRN PRN PRN Reason: Notification Stop: 06/05/21 13:03 Polyethylene Glycol (Polyethylene (Miralax) 17 Gm Pack) 17 gm PO Q6 [facility] Stop: 06/06/21 05:59 Last Admin: 05/07/21 05:51 Dose: 17 gm Documented by: Prazosin HCl (Prazosin Hcl 1 Mg Cap) 3 mg PO [facility] Stop: 06/05/21 20:59 Last Admin: 05/06/21 22:11 Dose: 3 mg Documented by: Quetiapine Fumarate (Quetiapine Fumarate 100 Mg Tablet) 100 mg PO [facility] Stop: 06/05/21 20:59 Last Admin: 05/06/21 21:19 Dose: 100 mg Documented by: Senna/Docusate Sodium (Docusate Sodium/Senna 50/8.6mg Tab) 2 tab PO [facility] Stop: 06/05/21 20:59 Last Admin: 05/06/21 21:19 Dose: 2 tab Documented by: Sodium Biphosphate/Sodium Phosphate (Sod Phosphate/Sod Biphosphate Enema 132 Ml Btl) 132 ml KS ONE PRN PRN Reason: Constipation Stop: 06/05/21 13:03 Tamsulosin HCl (Tamsulosin Hcl 0.4 Mg Cap) [facility] Stop: 06/06/21 08:59 Last Admin: 05/07/21 07:42 Dose: 0.4 mg Documented by: Tramadol HCl (Tramadol Hcl 50 Mg Tablet) 50 - 100 mg PO Q4H PRN PRN Reason: Moderate-Severe pain & Pre PT Stop: 06/05/21 13:03 Venlafaxine HCl (Venlafaxine Hcl Xr 75 Mg Capxr) [facility] [place] [place] Stop: 06/06/21 08:59 Last Admin: 05/07/21 07:41 Dose: 75 mg Documented by: Venlafaxine HCl (Venlafaxine Hcl Xr 150 Mg Capxr) [facility] [place] [place] Stop: 06/06/21 08:59 Last Admin: 05/07/21 07:42 Dose: 150 mg Documented by: ECG Rate (beats per minute): 75 Rhythm: normal sinus Findings: + RBBB
[2021-05-07 11:21] LABS: Appearance Urine Clear (Clear); Bilirubin Urine Negative (Negative); Blood Urine Negative (Negative); Color Urine Yellow; Glucose Urine UA 3+ (Negative); Ketones Urine Trace (Negative); Leukocyte Esterase Urine Negative (Negative); Nitrite Urine Negative (Negative); Protein Urine Negative (Negative); Specific Gravity Urine 1.025 (1.000-1.030); Urobilinogen Urine Negative (Negative)
--- NOTE | 2021-05-07 12:08 | XRay Report ---
XR chest 1V portable CLINICAL HISTORY: Fever. COMPARISON STUDY: Chest radiograph April 24, 2021. FINDINGS: Elevation of the right hemidiaphragm is unchanged. Lungs are clear. There is no pneumothora x or pleural effusion. Cardiac size is normal. Mediastinal contours are normal. There is no evidence for pulmonary edema. IMPRESSION: No acute cardiopulmonary findings. ACT 112: Negative or not required by law. Electronically signed by: Rod Echeverria M.D. 05/07/2021 12:06 PM
[2021-05-07] MEDS: oxyCODONE HCL IR 5 MG TAB (IMMEDIATE RELEASE) PO PRN ×2 (12:32→18:09)
--- NOTE | 2021-05-07 12:32 | Pharmacy Report ---
Pharmacy Glycemic Short Note 2 - Date of Service May 07, 2021 - Glycemic Short BSG Results (Last 24 hours): 05/06/21 05/06/21 05/06/21 12:24 17:15 21:21 Glucose POC Glucose 250 H 140 H 71 05/07/21 05/07/21 05/07/21 00:02 04:35 05:40 Glucose 144 H POC Glucose 98 137 H 05/07/21 05/07/21 07:54 11:58 Glucose POC Glucose 238 H 172 H OUTPATIENT ANTIDIABETIC REGIMEN: * Empagliflozin-Linagliptin 1 tablet daily * Lantus 30 units HS (last recorded dose of 30 units on 05/05/32) ASSESSMENT: 05/07/21 * Patient's BSGs yesterday were 186-295/250-140-71 mg/dL and overnight were 98- 137 mg/dL. Fasting on PRP was 144 mg/dL but POC was 238 mg/dL? * Will continue with home dose of Lantus 30 units tonight. * Novolog will be loosened since trended downwards significantly yesterday. * Dexamethasone 8 mg IV daily to start TOMORROW. NPH dosing will be determine tomorrow morning. Background * Mr Osorio is a 70 y/o M with a PMH of T2DM who presents for spinal surgery. Fasting BSG is 186 mg/dL and HbA1C is 8.3% (average BSG of ~190 mg/dL). * Will start with Lantus 45 units (home dose x 1.5). Documented patient took home dose last night; HOWEVER, nurse asked patient while I was on the phone and he DENIED taking insulin yesterday evening. This will provide some extra insulin to "make up" for missed dose yesterday. Overnight checks to ensure 24 hour coverage. * Novolog weight-based stress of 3. * Hold oral agents. PLAN FOR INPATIENT GLYCEMIC CONTROL: * Hold outpatient oral diabetes medications * Basal insulin * Lantus 30 units daily * Bolus insulin * NovoLog per scale ACHS or Q6hrs while NPO * Goal Range: Low 110 mg/dL - High 140 mg/dL * Correction Factor: 20 mg/dL/unit * Nutritional / Prandial insulin per carb ratio of 1 unit per 6 grams CHO consumed PLAN FOR DISCHARGE: * HbA1C is currently 8.3% which is above the goal of 7% for patient. * Recommend checking blood sugars at least twice daily at different times. (e.g. fasting, prior to breakfast, prior to lunch, prior to dinner, and bedtime) * Follow-up with provider to optimize blood sugars based upon trends.
[2021-05-07] MEDS: HYDROmorphone INJ 1 MG/ML SYRINGE IV PRN (15:24)
[2021-05-07] MEDS: ASPIRIN 81 MG ECTAB PO SCH (20:28)
[2021-05-07] MEDS: lamoTRIgine 25 MG TAB PO SCH (20:28)
[2021-05-07] MEDS: DOCUSATE SODIUM/SENNA 50/8.6MG TAB PO SCH (20:28)
[2021-05-07] MEDS: PRAZOSIN HCL 1 MG CAP PO SCH (20:29)
[2021-05-07] MEDS: QUEtiapine FUMARATE 100 MG TABLET PO SCH (20:29)
[2021-05-07] MEDS: INSULIN GLARGINE SOLOSTAR 100 UNITS/ML 3 ML PEN SC SCH (21:35)
[2021-05-08] MEDS: POLYETHYLENE (MIRALAX) 17 GM PACK PO SCH ×4 (00:25→18:11)
[2021-05-08] MEDS: HYDROmorphone INJ 1 MG/ML SYRINGE IV PRN (04:20)
[2021-05-08] MEDS: VENLAFAXINE HCL XR 150 MG CAPXR PO SCH (07:40)
[2021-05-08] MEDS: TAMSULOSIN HCL 0.4 MG CAP PO SCH (07:40)
[2021-05-08] MEDS: MULTIVITAMIN TAB PO SCH (07:40)
[2021-05-08] MEDS: oxyCODONE HCL IR 5 MG TAB (IMMEDIATE RELEASE) PO PRN ×2 (07:41→15:31)
[2021-05-08] MEDS: PANTOprazole 40 MG TAB PO SCH (07:41)
[2021-05-08] MEDS: VENLAFAXINE HCL XR 75 MG CAPXR PO SCH (07:41)
[2021-05-08] MEDS: dexAMETHasone 8 MG in SYRINGE 0 ML IV SCH (07:41)
[2021-05-08] MEDS ORDERED: NovoLIN-N (NPH) PER UNIT CHARGE SQ ONE (08:15)
[2021-05-08 08:27] LABS: Basophils # (auto) 0.05 K/uL (0-0.2); Basophils % (auto) 0.3 %; Eosinophils # (auto) 0.12 K/uL (0-0.5); Eosinophils % (auto) 0.7 %; Hematocrit (blood only) 38.3 % (42-52); Hemoglobin 12.3 g/dL (14.0-18.0); Immature Granulocytes # (auto) 0.04 K/uL (0.00-0.02); Immature Granulocytes % (auto) 0.2 %; Lymphocytes # (auto) 2.37 K/uL (1.2-3.4); Lymphocytes % (auto) 14.7 %; Mean Corpuscular Hemoglobin 30.1 pg (25-34); Mean Corpuscular Hgb Conc 32.1 g/dL (32-36); Mean Corpuscular Volume 93.9 fL (80-100); Mean Platelet Volume 11.7 fL (7.4-10.4); Monocytes # (auto) 2.12 K/uL (0.11-0.59); Monocytes % (auto) 13.1 %; Neutrophils # (auto) 11.43 K/uL (1.4-6.5); Platelet Count 188 K/uL (130-400); RDW Coefficient of Variation 13.1 % (11.5-14.5); Red Blood Count 4.08 M/uL (4.7-6.1); White Blood Count 16.13 K/uL (4.8-10.8)
--- NOTE | 2021-05-08 08:29 | Orthopedic Progress Note ---
Date of Service May 08, 2021 Assessment & Plan (1) Neurogenic claudication due to lumbar spinal stenosis: Plan: This time continue physical therapy monitor his MARY JO output anticipate possible discharge home tomorrow. Admission and Anticipated Discharge Date Admission Date: May 06, 2021 Subjective Patient's back pain is controlled leg symptoms markedly improved. Physical Exam Physical Exam: On exam he is sitting up at the bedside. Is good strength testing. Results & Data ([facility]) Vital Signs (Past 12 Hours) Vital Signs Temp Pulse Resp BP Pulse Ox 05/08/21 07:03 37.2 C 90 19 130/75 90 05/08/21 00:09 37.4 C 96 H 18 126/77 92
[2021-05-08] MEDS: INSULIN ASPART PER UNIT SC SCH ×4 (09:15→20:55)
[2021-05-08 10:06] LABS: BUN Creatinine Ratio 18.1 (10-20); Calcium 8.7 mg/dl (8.5-10.1); Creatinine Clr Calc Pharmacy 105.9 ml/min; Est GFR (African American) 104.1 ml/min; Est GFR (Non-African American) 89.8 ml/min; Potassium 4.1 mmol/L (3.5-5.1)
--- NOTE | 2021-05-08 13:02 | Pharmacy Report ---
Pharmacy Glycemic Short Note 2 - Date of Service May 08, 2021 - Glycemic Short BSG Results (Last 24 hours): 05/07/21 05/07/21 05/08/21 16:54 20:47 07:42 Glucose 150 H POC Glucose 154 H 203 H 05/08/21 05/08/21 08:05 12:05 Glucose POC Glucose 168 H 174 H OUTPATIENT ANTIDIABETIC REGIMEN: * Empagliflozin-Linagliptin 1 tablet daily * Lantus 30 units HS (last recorded dose of 30 units on 05/05/32) ASSESSMENT: 05/08/21 * Patient started on Dexamethasone 8mg IV daily today, add NPH to cover * Fasting 168mg/dl - continue Lantus * Continue CF/CR at this time, consider tightening if blood sugars trend up with steroids, although NPH should cover 05/07/21 * Patient's BSGs yesterday were 186-295/250-140-71 mg/dL and overnight were 98- 137 mg/dL. Fasting on PRP was 144 mg/dL but POC was 238 mg/dL? * Will continue with home dose of Lantus 30 units tonight. * NovoLog will be loosened since trended downwards significantly yesterday. * Dexamethasone 8 mg IV daily to start TOMORROW. NPH dosing will be determine tomorrow morning. Background * Mr Osorio is a 70 y/o M with a PMH of T2DM who presents for spinal surgery. Fasting BSG is 186 mg/dL and HbA1C is 8.3% (average BSG of ~190 mg/dL). * Will start with Lantus 45 units (home dose x 1.5). Documented patient took home dose last night; HOWEVER, nurse asked patient while I was on the phone and he DENIED taking insulin yesterday evening. This will provide some extra insulin to "make up" for missed dose yesterday. Overnight checks to ensure 24 hour coverage. * NovoLog weight-based stress of 3. * Hold oral agents. PLAN FOR INPATIENT GLYCEMIC CONTROL: * Hold outpatient oral diabetes medications * Basal insulin * Lantus 30 units SQ HS * NPH 40 units SQ daily with IV Dexamethasone * Bolus insulin * NovoLog per scale ACHS or Q6hrs while NPO * Goal Range: Low 110 mg/dL - High 140 mg/dL * Correction Factor: 20 mg/dL/unit * Nutritional / Prandial insulin per carb ratio of 1 unit per 6 grams CHO consumed PLAN FOR DISCHARGE: * HbA1C is currently 8.3% which is above the goal of 7% for patient. * Recommend checking blood sugars at least twice daily at different times. (e.g. fasting, prior to breakfast, prior to lunch, prior to dinner, and bedtime) * Follow-up with provider to optimize blood sugars based upon trends.
--- NOTE | 2021-05-08 13:25 | Hospitalist Progress Note ---
Date of Service May 08, 2021 Assessment & Plan (1) Neurogenic claudication due to lumbar spinal stenosis: (2) Diabetes mellitus, type 2: (3) Post traumatic stress disorder: Plan: This is a 70-year-old male who has a significant past medical history of PTSD and T2DM who presented for lumbar procedure by Dr. Zarco. Neurogenic claudication due to lumbar spinal stenosis Status post L2-S1 DECOMPRESSION, POD #[address] Zarco EBL 750 mL; Tolerated procedure well Pain/wound management per orthopedics To begin therapy as prescribed orthopedics Encourage incentive spirometry Postoperative fever T-max 39.2 Overnight patient met SIRS criteria secondary to fever and tachycardia, Mild leukocytosis this morning at 13k Possibly in setting of postop state urine and cxr normal blood culture: NGTD Currently fever has abated, will monitor hold off on antibiotics at this time, spirometer encouraged likely 2/2 to post op, no active infection Acute blood loss anemia and postop state Preop hemoglobin 16.2, hemoglobin on postop day 2, 12.3 No signs or symptoms of hemodynamic instability Likely secondary to blood loss intraoperatively and postoperatively, expected Monitor, transfuse hemoglobin less than 7 or otherwise hemodynamically unstable/symptomatic T2DM -with hyperglycemia Per patient last A1c's 8.3 on 04/24/2021 Glycemic pharmacy on board, appreciate their management Home regimen of Lantus 30 units at bedtime and empagliflozin and linagliptin PTSD Depression with anxiety Continue Seroquel, prazosin, Lamictal, Effexor BPH Continue Flomax Dispo: Per primary PCP: Michael Castrejon PA FULL CODE Patient was seen and examined in collaboration with Dr. Brambila, please see addendum Thank you for this consultation. We will follow the patient with you during their hospital stay. You can reach a member of the [facility] Hospitalist Team 03/11 via hospitalist role on tiger text. The chart was completed utilizing [employer] 911 Speech voice recognition software. Grammatical errors, random word insertions, pronoun errors, and incomplete sentences are an occasional consequence of this system due to software limitations, ambient noise, and hardware issues. Any formal questions or concerns about the content, text, or information contained within the body of this dictation should be directly addressed to the provider for clarification.. Admission and Anticipated Discharge Date Admission Date: May 06, 2021 Supervising Physician Co-Signing Physician Notes Patient is seen and examined at bedside. Doing well postoperatively. Leukoc ytosis likely secondary to steroids. Denies any significant back pain at surgical site. Ambulating in the hallways.+ Flatus no bowel movement this morning. Denies any chest pain, shortness of breath, dizziness, nausea, abdominal pain. Patient is well-built and nourished, no apparent distress, normocephalic atraumatic, lungs are clear to auscultation, S1-S2, no murmur, no pedal edema, abdomen soft, nontender, normal bowel sounds, Back+ surgical site in dressing, drain, alert, awake, oriented, grossly no focal deficits. Lumbar spinal stenosis with neurogenic claudication S/P surgery. Wound care, DVT prophylaxis, activity as per primary team. Postoperative fever resolved. Follow-up cultures. Continue insulin therapy for diabetes management. I personally reviewed the record. Patient is interviewed and examined at bedside. Patient's care is coordinated with [place]ia Butterfield PA-C. Please refer to the documentation above for details of patient's presentation and for discussion of other issues. Subjective Patient was seen and examined in room 351-2. F/U lumbar surgery and post op fever. His fever has resolved and not returned. He is complaining of burning back pain. Denies f/c/s, chest pain, sob, n/v/d. + Flatus and tolerating diet. Review of Systems Review of Systems: All systems reviewed & are unremarkable except as noted in HPI & below Physical Exam Physical Exam: Gen: WD/WN, NAD, A&O x3 HEENT: Normocephalic, atraumatic, conjunctivae moist, sclerae anicteric, mucous membranes moist. Lung: Clear to Auscultation bilaterally, no wheezes/rales/rhonchi Heart: Regular rate, regular rhythm, no murmurs, rubs, or gallops Abdomen: Soft, NT, ND +BS x 4 Extremities: No edema, LUmbar dressing CDI, MARY JO drain with serosang drainage Skin: Warm, no rash, negative turgor. Results & Data Results & Data ([facility]) Vital Signs (Past 12 Hours) Vital Signs Temp Pulse Resp BP Pulse Ox 05/08/21 10:59 37.5 C 96 H 20 127/74 91 05/08/21 07:03 37.2 C 90 19 130/75 90
[2021-05-08] MEDS: INSULIN GLARGINE SOLOSTAR 100 UNITS/ML 3 ML PEN SC SCH (20:55)
[2021-05-08] MEDS: ASPIRIN 81 MG ECTAB PO SCH (20:56)
[2021-05-08] MEDS: DOCUSATE SODIUM/SENNA 50/8.6MG TAB PO SCH (20:56)
[2021-05-08] MEDS: PRAZOSIN HCL 1 MG CAP PO SCH (20:56)
[2021-05-08] MEDS: lamoTRIgine 25 MG TAB PO SCH (20:57)
[2021-05-08] MEDS: QUEtiapine FUMARATE 100 MG TABLET PO SCH (20:57)
[2021-05-09] MEDS: POLYETHYLENE (MIRALAX) 17 GM PACK PO SCH ×4 (00:05→13:12)
[2021-05-09] MEDS: oxyCODONE HCL IR 5 MG TAB (IMMEDIATE RELEASE) PO PRN ×2 (05:41→09:50)
[2021-05-09 07:48] LABS: Hematocrit (blood only) 35.6 % (42-52); Hemoglobin 11.3 g/dL (14.0-18.0); Mean Corpuscular Hemoglobin 29.9 pg (25-34); Mean Corpuscular Hgb Conc 31.7 g/dL (32-36); Mean Corpuscular Volume 94.2 fL (80-100); Mean Platelet Volume 11.9 fL (7.4-10.4); Platelet Count 184 K/uL (130-400); RDW Standard Deviation 44.8 fL (36.4-46.3); Red Blood Count 3.78 M/uL (4.7-6.1); White Blood Count 15.84 K/uL (4.8-10.8)
[2021-05-09 08:16] LABS: BUN Creatinine Ratio 25.4 (10-20); Calcium 8.9 mg/dl (8.5-10.1); Creatinine Clr Calc Pharmacy 123.8 ml/min; Est GFR (Non-African American) 95.7 ml/min; Potassium 3.6 mmol/L (3.5-5.1)
[2021-05-09] MEDS ORDERED: NovoLIN-N (NPH) PER UNIT CHARGE SQ ONE (09:00)
[2021-05-09] MEDS: dexAMETHasone 8 MG in SYRINGE 0 ML IV SCH (09:10)
[2021-05-09] MEDS: PANTOprazole 40 MG TAB PO SCH (09:10)
[2021-05-09] MEDS: MULTIVITAMIN TAB PO SCH (09:10)
[2021-05-09] MEDS: VENLAFAXINE HCL XR 75 MG CAPXR PO SCH (09:11)
[2021-05-09] MEDS: VENLAFAXINE HCL XR 150 MG CAPXR PO SCH (09:11)
[2021-05-09] MEDS: TAMSULOSIN HCL 0.4 MG CAP PO SCH (09:11)
--- NOTE | 2021-05-09 09:13 | Hospitalist Progress Note ---
Date of Service May 09, 2021 Assessment & Plan (1) Neurogenic claudication due to lumbar spinal stenosis: (2) Diabetes mellitus, type 2: (3) Post traumatic stress disorder: Plan: This is a 70-year-old male who has a significant past medical history of PTSD and T2DM who presented for lumbar procedure by Dr. Zarco. Neurogenic claudication due to lumbar spinal stenosis Status post L2-S1 DECOMPRESSION, POD #[address] Zarco EBL 750 mL, hgb stable at 11.3 today (12.3 yesterday) Pain/wound management per orthopedics To begin therapy as prescribed orthopedics Encourage incentive spirometry Postoperative fever -> resolved T-max 39.2 Overnight patient met SIRS criteria secondary to fever and tachycardia, Mild leukocytosis this morning at 13k but also receiving steroids Possibly in setting of postop state urine and cxr normal blood culture: NGTD Currently fever has abated, will monitor hold off on antibiotics at this time, spirometer encouraged likely 2/2 to post op, no active infection Acute blood loss anemia and postop state Preop hemoglobin 16.2, hemoglobin on postop day 2, 11.3 No signs or symptoms of hemodynamic instability Likely secondary to blood loss intraoperatively and postoperatively, expected Monitor, transfuse hemoglobin less than 7 or otherwise hemodynamically unstable/symptomatic T2DM -with hyperglycemia Per patient last A1c's 8.3 on 04/24/2021 Glycemic pharmacy on board, appreciate their management Home regimen of Lantus 30 units at bedtime and empagliflozin and linagliptin PTSD Depression with anxiety Continue Seroquel, prazosin, Lamictal, Effexor BPH Continue Flomax Dispo: Per primary PCP: Michael Castrejon PA FULL CODE Patient was seen and examined in collaboration with Dr. Bramibla, please see addendum Thank you for this consultation. We will follow the patient with you during their hospital stay. You can reach a member of the [facility] Hospitalist Team 03/11 via hospitalist role on tiger text. Admission and Anticipated Discharge Date Admission Date: May 06, 2021 Supervising Physician Co-Signing Physician Notes Patient is seen and examined at bedside. No new complaints. Back pain is co ntrolled. Denies any chest pain, shortness of breath, dizziness, nausea, abdominal pain. Patient is well-built and nourished, no apparent distress, normocephalic atraumatic, lungs are clear to auscultation, S1-S2, no murmur, no pedal edema, abdomen soft, nontender, normal bowel sounds, Back+ surgical site in dressing, drain, alert, awake, oriented, grossly no focal deficits. Lumbar spinal stenosis with neurogenic claudication S/P surgery. Wound care, DVT prophylaxis, activity as per primary team. Postoperative fever resolved. Blood cultures negative to date. Advised to follow-up with PCP for final culture report. Continue insulin therapy for diabetes management. I personally reviewed the record. Patient is interviewed and examined at bedside. Patient's care is coordinated with Puja Bartholomew PA-C. Please refer to the documentation above for details of patient's presentation and for discussion of other issues. Subjective Patient was seen and examined in room 351-2. F/U lumbar surgery and post op fever. Fever has resolved and has remained afebrile. Feeling well today and ambulating without issue. Some surgical site discomfort. No fever, chills, CP, SOB, N/V, abdominal pain, dysuria. + Flatus, no post-op bowel movement Review of Systems Review of Systems: At least ten systems reviewed and negative except as noted in the HPI. Physical Exam Physical Exam: Gen: WD/WN, NAD, sitting in bedside chair, A&Ox3 HEENT: Normocephalic, atraumatic, conjunctivae moist, sclerae anicteric, mucous membranes moist Lung: Clear to Auscultation bilaterally, no wheezes/rales/rhonchi Heart: Regular rate, regular rhythm, no murmurs, rubs, or gallops Abdomen: Soft, NT, ND +BS x 4 Extremities: no edema Skin: Warm, no rash Results & Data Results & Data ([facility]) Vital Signs (Past 12 Hours) Vital Signs Temp Pulse Resp BP Pulse Ox 05/09/21 07:13 36.5 C 83 16 128/77 95 05/08/21 23:46 36.9 C 89 18 102/61 93 Laboratory Results Short CBC 05/09/21 Range/Units 06:31 WBC 15.84 H (4.8-10.8) K/uL Hgb 11.3 L (14.0-18.0) g/dL Hct 35.6 L (42-52) % Plt Count 184 (130-400) K/uL BMP 05/09/21 06:31 Sodium 140 Potassium 3.6 Chloride 106 Carbon Dioxide 27 BUN 18 Creatinine 0.71 Glucose 62 L Calcium 8.9 Diagnostic Findings Lumbar Spine X-Ray 05/06/21 07:45 FL lumbar spine 2-3V CLINICAL HISTORY: L2-S1 DECOMPRESSION COMPARISON STUDY: None. FLUOROSCOPY TIME: 41 seconds. FLUOROSCOPIC IMAGES: 4 FINDINGS: L3-L4, L4-L5 and L5-S1 discectomies with interbody spacer placement as noted. Multilevel posterior decompression is noted. Note is made of L2-S1 bilateral pedicle screw fusion with interconnecting rods. Hardware is intact. IMPRESSION: Fluoroscopy provided during L3-L4, L4-5 and L5-S1 discectomies with multilevel posterior decompression and L2-S1 bilateral pedicle screw fusion. ACT 112: Negative or not required by law. Electronically signed by: Rod Echeverria M.D. 05/06/2021 11:33 AM Chest X-Ray 05/07/21 10:42 XR chest 1V portable CLINICAL HISTORY: Fever. COMPARISON STUDY: Chest radiograph April 24, 2021. FINDINGS: Elevation of the right hemidiaphragm is unchanged. Lungs are clear. There is no pneumothorax or pleural effusion. Cardiac size is normal. Mediastinal contours are normal. There is no evidence for pulmonary edema. IMPRESSION: No acute cardiopulmonary findings. ACT 112: Negative or not required by law. Electronically signed by: Rod Echeverria M.D. 05/07/2021 12:06 PM
[2021-05-09] MEDS: INSULIN ASPART PER UNIT SC SCH ×2 (09:22→13:09)
--- NOTE | 2021-05-09 10:26 | Discharge Summary ---
Date of Service May 09, 2021 Admission HPI Per Admitting Provider This is a 70-year-old male presents with chronic persistent back and leg pain. Failing course of nonoperative care she for surgical invention. Principal Diagnosis Lumbar spinal stenosis with neurogenic claudication Discharge Data Allergies Allergy/AdvReac Type Severity Reaction Status Date / Time chlorpromazine Allergy Intermediate Hives Verified 05/06/21 07:24 [From Thorazine] Consultations 05/06/21 13:04 Consult Hospitalist Routine Procedures Performed Operation Date: 05/06/21 07:45 Actual Procedures p L3-S1 Decompression, L2-S1 Fusion, Spinal Cord Monitoring(Not Applicable) - Michael Zarco DO Ordered Studies 05/06/21 07:45 FL lumbar spine 2-3V Routine Hospital Course (1) Neurogenic claudication due to lumbar spinal stenosis: Patient 1 multilevel lumbar decompression fusion Targis well second orthopedic floor postoperative postop day 1 he was up and ambulating progressed appropriately postop day #2 on postop day 3 pain was controlled MARY JO drain decreasing appropriately. Subsequently discharged home. Discharge orders and instructions found the chart for further review. Total Time Total Time Spent Total Time Spent (In Minutes): 20 minutes Discharge Plan Discharge Items Patient Disposition: Home - Self-Care Reason For Visit: Spinal Stenosis, Lumbar Region with Neurogenic Cla Discharge Diagnosis: Lumbar spinal stenosis with neurogenic claudication Activity: As commented below Non-emergency contact: Primary Care Provider Call non-emergency contact if: you have any medication questions Follow-up/Referrals: Michael Zarco DO [Surgeon] - 05/23/21 11:15 am (APPT WITH MOUNIKA PARKS AT [facility]) Kristi Ingram D.O. [Primary Care Provider] - Diet: Regular Addtl Attending Provider Instructions: ACTIVITY RECOMMENDATIONS: SELF CARE INSTRUCTIONS AFTER THORACIC/LUMBAR FUSIONS 1. You may walk to your tolerance. It is good exercise for your legs and back. Expect some back and intermittent leg aches and pains. 2. You may perform "counter-top" level activities (make a sandwich, dannielle with a project, etc.). 3. No bending or lifting of more than 10 pounds or back twisting of any nature (roll like a log when turning in bed). 4. You may ride in a car for 20-30 minutes at a time. No driving until after your first visit with your doctor. 5. Frequent changes of position and restricting sitting to 30 minutes at a time will help limit the amount of back spasms and stiffness you may experience. 6. You may discontinue the use of ambulatory aids (cane, crutches, etc.) once your strength and confidence allow. 7. You may fire hazard inspector the shower and let water strike your incision when you arrive home at least once daily. Do not take a tub bath, sit in a hot tub or go into a swimming pool until after your first recheck in the office. SPECIAL CARE INSTRUCTIONS: VERY IMPORTANT TO READ AND REVIEW A. Your surgical incision has been closed with a cosmetic suture under the skin that will dissolve in about 6 weeks. In 14 days, you can use a pair of clean scissors and cut the suture that is left outside of the skin at the ends of your incision. 1. The small skin tapes can be removed 7 days after surgery if they have not fallen off by that point. 2. You may keep the wound open to air as much as possible to promote healing after post-op day number 5 unless told otherwise by your doctor. 3. If you think the wound looks like it is becoming infected (redness or worsening drainage) and/or you are experiencing fever, chill or worsening back pain and muscle spasms, contact the office so that we may evaluate you as soon as possible. B. Complications are uncommon, but please contact us if you have any signs or symptoms of: 1. wound infection (fever higher than 102.5 degrees F, redness, separation o f wound, drainage, or increasing pain from the incision) 2. blood clots in legs (pain, swelling, redness and warmth in legs) 3. urinary tract infection (fever higher than 102.5 degrees F, burning upon urination or increased frequency of urination) 4. nerve problems (inability to walk on your toes or heels, numbness, loss of bowel or bladder control) 5. any other symptoms that concern you C. Please call the office at if you have any concerns or questions about your operation or recovery. D. No smoking! Smoking drastically decreases the chance of a solid fusion. E. Do not take any anti-inflammatory medications (Indocin, Advil, Motrin, Aspi rin, Naprosyn, etc.) as these may inhibit the chance of a solid fusion. Tylenol is okay to take for pain. MANAGING PAIN AFTER SPINAL SURGERY 1. Narcotic medication is intended for short-term use and will be provided for surgical pain. Surgical pain usually lasts for a period of 4-6 weeks. Narcotic medication includes Percocet, Vicodin, Darvocet, Tylenol #3 or Lortab. 2. Longer-term pain is more appropriately treated with non-narcotic medication such as Tylenol ES. 3. Muscle spasm is not appropriately treated with narcotics. Muscle relaxers such as Soma, Flexeril or Skelaxin can be used along with Tylenol ES. 4. Remember that we all live with some "aches and pains". This is not unusual or uncommon after an injury or as we get older. a. Back pain is expected and may include muscle spasms for 4 to 6 weeks after surgery. The pain should gradually improve. If the pain worsens for no apparent reason, please contact the office. b. Intermittent leg pain may also be experienced and should not be concerned about unless it worsens for no apparent reason. If so, please contact the office. 5. We will provide appropriate medication within the normal guidelines of their prescribed use. We will also be very cautious and aware of potential abuse and extended duration of patients' medication needs. a. Pain medications are for your comfort and to assist with sleep and rest so that the tissue can heal. They are not provided in order to return to normal activity and should not be used through the day. To do so or worsening pain at night can result from ongoing tissue damage and development of tolerance to the prescribed medicine. 6. Please allow 2-3 days to process refills. Prescriptions will not be mailed but must be picked up at the office. FOLLOW UP VISIT: Keep your scheduled follow-up appointment. Any questions, please call the office at . Pending Studies at Discharge: No Stand-Alone Forms: [employer], Smoking Cessation Medications and DC Order Prescriptions: New tramadol 50 mg tablet 50 mg PO Q6H PRN (Reason: pain, moderate) Qty: 30 RF: 0 oxycodone 5 mg tablet 5 mg PO Q6H PRN (Reason: pain, severe) Qty: 30 RF: 0 Continued venlafaxine [Effexor XR] 75 mg Capsule,Extended Release 24hr 75 mg PO QAM RF: 0 ibuprofen 800 mg Tablet 800 mg PO HS RF: 0 prazosin 1 mg Capsule 3 mg PO HS RF: 0 venlafaxine [Effexor XR] 150 mg Capsule,Extended Release 24hr 150 mg PO QAM RF: 0 quetiapine [Seroquel] 100 mg Tablet 100 mg PO HS RF: 0 tamsulosin 0.4 mg Capsule 0.4 mg PO QAM RF: 0 pantoprazole 40 mg Tablet,Delayed Release (Dr/Ec) 40 mg PO QAM RF: 0 Glyxambi 25-5 mg Tablet 1 tab PO QAM RF: 0 multivitamin Tablet 1 tab PO QAM RF: 0 caffeine 200 mg Tablet 400 mg PO QAM RF: 0 aspirin 81 mg Tablet,Delayed Release (Dr/Ec) 81 mg PO HS RF: 0 insulin glargine 100 unit/mL Cartridge 30 unit subcut HS RF: 0 lamotrigine [Lamictal] 25 mg Tablet 50 mg PO HS RF: 0 Discharge Orders: Discharge Order (Routine); Ordered 05/09/21 Ordered By: Michael Zarco Admission Data Admit Date/Time: 05/06/21 11:20 Attending Provider: Michael Zarco Admit Provider: Michael Zarco Primary Care Provider: Kristi Ingram Other Providers: Joanne Méndez ; Car Brambila ; Puja Bartholomew
[2021-05-09] MEDS ORDERED: INSULIN GLARGINE SOLOSTAR 100 UNITS/ML 3 ML PEN SC SCH (21:00)
== END 2021-05-09 15:30 | disposition home or self-care (01) | DRG 454 ==
LOC: ASU 06:12 → 3W 11:20